=== PATIENT | male | born 1965 ===

== ENCOUNTER 2017-10-06 11:11 | Emergency (ER) | payer OTHER ==
[2017-10-06 11:26] VITALS: RESP 20
[2017-10-06] MEDS ORDERED: Sodium Chloride 0.9% 1,000 ML IV ONE (11:38)
[2017-10-06 12:03] LABS: BASO # 0.2 K/uL (0.0-0.2); BASO % 1.2 % (0.0-2.0); HEMOGLOBIN 14.5 g/dL (12.0-18.0); LYMPH # 1.6 K/uL (1.0-4.3); LYMPH % 11.7 % (20.0-40.0); MEAN CELL VOLUME 93.4 fL (80.0-94.0); MEAN CORPUSCULAR HEMOGLOBIN 32.2 pg (27.0-31.0); MEAN CORPUSCULAR HGB CONC 34.4 g/dL (33.0-37.0); MEAN PLATELET VOLUME 9.1 fL (7.2-11.7); MONO # 0.8 K/uL (0.0-0.8); MONO % 5.8 % (0.0-10.0); NEUT % 81.3 % (50.0-75.0); RBC 4.5 Mil/uL (4.40-5.90); RED CELL DISTRIBUTION WIDTH 12.3 % (11.5-14.5); WHITE BLOOD COUNT 13.5 K/uL (4.8-10.8)
[2017-10-06 12:11] LABS: INR 1.1; PROTHROMBIN TIME 12.1 SECONDS (9.7-12.2)
[2017-10-06] MEDS ORDERED: Sodium Chloride 0.9% 1,000 ML ONE (12:16)
[2017-10-06 12:18] LABS: ALB/GLOB RATIO 1.2 (1.0-2.1); ALBUMIN 4.4 g/dL (3.5-5.0); ALT/SGPT 65 U/L (21-72); AST/SGOT 44 U/L (17-59); BLOOD UREA NITROGEN 17 mg/dL (9-20); CALCIUM 9.4 mg/dl (8.6-10.4); GFR AFRICAN-AMERICAN > 60; GFR NON-AFRICAN AMERICAN > 60; LIPASE 70 U/L (23-300)
[2017-10-06 12:27] LABS: URINE BILIRUBIN NEGATIVE (NEGATIVE); URINE BLOOD 1+ (NEGATIVE); URINE CLARITY Clear (Clear); URINE COLOR Yellow (YELLOW); URINE GLUCOSE (UA) NORMAL (Normal); URINE LEUKOCYTE ESTERASE NEG Leu/uL (Negative); URINE NITRATE NEGATIVE (NEGATIVE); URINE PROTEIN NEGATIVE (NEGATIVE); URINE UROBILINOGEN NORMAL mg/dL (0.2-1.0)
--- NOTE | 2017-10-06 12:48 | C.PDOC ---
History Of Present Illness 52 y/o male presents to the ER for evaluation of intermittent left flank and epigastric pain which developed since yesterday. Patient states that the pain become worse today in the morning with nausea. Otherwise, patient denies fever, chills, cough, chest pain, SOB, dyspnea, palpitation, vomiting, diarrhea, UTI sx ,back pain, hematuria. Ambulate to Ed for evaluation, appears in pain. Time Seen by Provider: 10/06/17 11:31 Chief Complaint (Nursing): Abdominal Pain History Per: Patient History/Exam Limitations: no limitations Onset/Duration Of Symptoms: Days Current Symptoms Are (Timing): Still Present Severity: Moderate Associated Symptoms: denies: Fever, Chills, Vomiting, Diarrhea, Chest Pain Past Medical History Reviewed: Historical Data, Nursing Documentation, Vital Signs Vital Signs: Last Vital Signs Temp 98.1 F 10/06/17 11:24 Pulse 77 10/06/17 11:24 Resp 20 10/06/17 11:24 BP 169/95 H 10/06/17 11:24 Pulse Ox 97 10/06/17 12:55 - Medical History PMH: No Chronic Diseases Surgical History: No Surg Hx Family History: States: No Known Family Hx - Social History Hx Alcohol Use: Yes Hx Substance Use: No - Immunization History Hx Tetanus Toxoid Vaccination: No Hx Influenza Vaccination: No Hx Pneumococcal Vaccination: No Review Of Systems Except As Marked, All Systems Reviewed And Found Negative. Constitutional: Negative for: Fever, Chills ENT: Negative for: Nose Discharge, Nose Congestion, Throat Pain, Throat Swelling Cardiovascular: Negative for: Chest Pain, Palpitations Respiratory: Negative for: Cough, Shortness of Breath Gastrointestinal: Positive for: Abdominal Pain. Negative for: Vomiting, Diarrhea Genitourinary: Negative for: Dysuria, Frequency Musculoskeletal: Negative for: Neck Pain, Back Pain Skin: Negative for: Rash Neurological: Negative for: Altered Mental Status Physical Exam - Physical Exam Appears: Non-toxic, No Acute Distress Skin: Normal Color, Warm, No Rash Head: Normacephalic Eye(s): bilateral: PERRL Nose: No Discharge Oral Mucosa: Moist, No Drooling Throat: No Erythema Neck: Trachea Midline, Supple Chest: Symmetrical Cardiovascular: Rhythm Regular Respiratory: No Decreased Breath Sounds, No Accessory Muscle Use, No Rales, No Rhonchi, No Stridor, No Wheezing Gastrointestinal/Abdominal: Soft, Tenderness (mild epigastric tenderness) Back: No CVA Tenderness, Other (left sided flank tenderness) Extremity: Normal ROM, No Pedal Edema, No Deformity Neurological/Psych: Oriented x3, Normal Speech, Normal Motor, Normal Sensation ED Course And Treatment - Laboratory Results Result Diagrams: 10/06/17 12:00 10/06/17 12:00 Lab Interpretation: No Acute Changes O2 Sat by Pulse Oximetry: 97 (RA) Pulse Ox Interpretation: Normal - CT Scan/US CT abd/pelvis Other Rad Studies (CT/US): Radiology Report Reviewed CT/US Interpretation: FINDINGS: There is limited evaluation of the solid organs without the administration of IV contrast. LOWER THORAX: No visible consolidation, pleural effusion, or pneumothorax. LIVER: Unremarkable unenhanced appearance. GALLBLADDER AND BILE DUCTS: Unremarkable unenhanced appearance. PANCREAS: Unremarkable unenhanced appearance. SPLEEN: Unremarkable unenhanced appearance. ADRENALS: Unremarkable unenhanced appearance. KIDNEYS AND URETERS: 5 mm calcification within the urinary bladder just distal to the left UVJ, consistent with recently passed calculus. Mild left hydroureter nephrosis. Additional nonobstructing bilateral renal calculi. No right-sided hydroureter or hydronephrosis. BLADDER: See above. REPRODUCTIVE: The prostate gland measures approximately 3.6 x 3.6 cm. APPENDIX : The appendix appears within normal limits of caliber. No secondary signs of acute appendicitis. BOWEL: The stomach is nondistended. Lack of oral contrast limits evaluation for bowel pathology. The bowel loops appear within normal limits of caliber without evidence of intestinal obstruction. Diverticulosis without CT evidence of acute diverticulitis. PERITONEUM: No significant free fluid. No definite free air. LYMPH NODES: No bulky lymphadenopathy identified. VASCULATURE: No aortic aneurysm. BONES: No acute osseous abnormality is detected. OTHER FINDINGS: None. IMPRESSION: Findings as described above consistent with recently passed left-sided renal/ ureteral calculus. Additional nonobstructing bilateral renal calculi are evident. Diverticulosis without CT evidence of acute diverticulitis. Progress Note: Labs and CT-Abd & Pelv. ordered. Patient given IV Fluids. Pt was OBS in ED for 3 hours and reports moderate improvement in pain. On re- evalution, pt is afebrile, hemodynamicaly stable. Non-toxic. Not in resp. distress. PulseOx 97% RA. Neck: Supple, (-) JVD, (-) carotid bruits B/L. ENT : No acute findings. Lungs: mod improvement in exp.wheezing B/L, BS equal B/L. CVS: (+)S1S2, reg. Abd: benign, (-) gaurding, (-) rebound. Back: (-) CVA tenderness. Blood work review , mild leukocytosis. BMP- normal. CT abd/ pelvis review and c/w 5mm calcification within urinary bladdre, c/w recently passed calculus. results review and discussed with patient. Pt advised. Pt ref. to f/u with Urology in 2-3 days for re-evaluation. Return to Ed if any worsening or new changes. Disposition Counseled Patient/Family Regarding: Studies Performed, Diagnosis, Need For Followup, Rx Given - Disposition Referrals: Rj Trevino DO [Primary Care Provider] - Bk Luque MD [Staff Provider] - Disposition: HOME/ ROUTINE Disposition Time: 14:30 Condition: STABLE Additional Instructions: Encourage fluids Strain urine every time urinating take pain medication as need Follow up with Urology in 2-3 days for re-evaluation. Return to ED if any worsening or new changes. Prescriptions: traMADol [Ultram] 50 mg PO TID #7 tab Instructions: Kidney Stones in Adults Forms: [facility] (Vincentian) Print Language: COMORAN - Clinical Impression Clinical Impression: Kidney stone - PA / PROGRAM RESEARCH SPECIALIST / Resident Statement RANDI has reviewed & agrees with the documentation as recorded. - Scribe Statement The provider has reviewed the documentation as recorded by the Anibal Saldana Provider Attestation All medical record entries made by the Anibal were at my direction and personally dictated by me. I have reviewed the chart and agree that the record accurately reflects my personal performance of the history, physical exam, medical decision making, and the department course for this patient. I have also personally directed, reviewed, and agree with the discharge instructions and disposition.
--- NOTE | 2017-10-06 13:35 | CT ---
PROCEDURE: CT Abdomen and Pelvis without Oral or IV contrast. HISTORY: Left flank COMPARISON: None available. TECHNIQUE: Contiguous axial images of the abdomen and pelvis. No oral or IV contrast administered. Coronal and Sagittal reformats generated and reviewed. Radiation dose: Total exam DLP = 439.24 mGy-cm. This CT exam was performed using one or more of the following dose reduction techniques: Automated exposure control, adjustment of the mA and/or kV according to patient size, and/or use of iterative reconstruction technique. FINDINGS: There is limited evaluation of the solid organs without the administration of IV contrast. LOWER THORAX: No visible consolidation, pleural effusion, or pneumothorax. LIVER: Unremarkable unenhanced appearance. GALLBLADDER AND BILE DUCTS: Unremarkable unenhanced appearance. PANCREAS: Unremarkable unenhanced appearance. SPLEEN: Unremarkable unenhanced appearance. ADRENALS: Unremarkable unenhanced appearance. KIDNEYS AND URETERS: 5 mm calcification within the urinary bladder just distal to the left UVJ, consistent with recently passed calculus. Mild left hydroureter nephrosis. Additional nonobstructing bilateral renal calculi. No right-sided hydroureter or hydronephrosis. BLADDER: See above. REPRODUCTIVE: The prostate gland measures approximately 3.6 x 3.6 cm. APPENDIX: The appendix appears within normal limits of caliber. No secondary signs of acute appendicitis. BOWEL: The stomach is nondistended. Lack of oral contrast limits evaluation for bowel pathology. The bowel loops appear within normal limits of caliber without evidence of intestinal obstruction. Diverticulosis without CT evidence of acute diverticulitis. PERITONEUM: No significant free fluid. No definite free air. LYMPH NODES: No bulky lymphadenopathy identified. VASCULATURE: No aortic aneurysm. BONES: No acute osseous abnormality is detected. OTHER FINDINGS: None. IMPRESSION: Findings as described above consistent with recently passed left-sided renal/ureteral calculus. Additional nonobstructing bilateral renal calculi are evident. Diverticulosis without CT evidence of acute diverticulitis.
[2017-10-06 15:24] VITALS: BP 132/64; PULSE 64; TEMP 99; O2SAT 100
== END 2017-10-06 15:22 | disposition home or self-care (01) ==
LOC: C.ER 11:11 → SUPCPDRO 11:11 → C.ER 15:22
DX: N20.0 Calculus of kidney (principal)
CPT/HCPCS: 74176; 80053; 81001; 83690; 85025; 85610; 85730; 87086; 96361; 96374; 96375; 99285; J1885; J2405; J7040